=== PATIENT | male | born 1985 | race African-American/Black ===

== ENCOUNTER 2016-11-25 21:00 | Emergency (ER) | payer BC | END 2016-11-25 21:50 | disposition home or self-care (01) | LOC: ER 21:00 | DX: S05.01XA Injury of conjunctiva and corneal abrasion without foreign body, right eye, initial encounter (principal); H10.9 Unspecified conjunctivitis; J45.909 Unspecified asthma, uncomplicated; Z88.1 Allergy status to other antibiotic agents; X58.XXXA Exposure to other specified factors, initial encounter | CPT/HCPCS: 99283; A9270-GY ==